=== PATIENT | female | born 1990 | race African-American/Black ===

== ENCOUNTER 2021-04-22 17:00 | Emergency (ER) | payer BC, SELFPAY ==
--- NOTE | ~2021-04-22 | CT_ITS ---
EXAMINATION: CT ABDOMEN AND PELVIS WITH CONTRAST CLINICAL INFORMATION: Left lower quadrant and flank pain. COMPARISON: None TECHNIQUE: Multidetector volumetric images were obtained from the superior aspect of the liver through the pubic symphysis following administration 85 mL of Omnipaque 350 intravenous contrast. Sagittal and coronal reformatted images were obtained on the technologist's workstation. Oral contrast: No This CT examination was performed using dose optimization techniques as appropriate, variously including the following: *Automated exposure control *Adjustment of mA and/or kV according to patient size (this includes techniques or standardized protocols for targeted exams where dose is matched to indication/reason for exam; i.e. extremities or head) *Use of iterative reconstruction technique DLP: 974 mGy-cm FINDINGS: LUNG BASES: The visualized lung bases are unremarkable. LIVER, GALLBLADDER, AND BILIARY TREE: The liver is normal in size, shape, and attenuation. There is a benign cyst within the right lobe of liver measuring 1.2 cm. No suspicious hepatic lesion or biliary ductal dilatation is present. Gallbladder unremarkable. PANCREAS: Unremarkable. SPLEEN: Unremarkable. ADRENAL GLANDS: Unremarkable. KIDNEYS AND URETERS: There is a 4 mm stone within the distal left ureter located at the ureterovesical junction associated mild upstream hydroureter and hydronephrosis as well as delayed/diminished enhancement of the left kidney with respect to the right. There is a 3 mm nonobstructive calculus in the interpolar region of the right kidney. BLADDER: Unremarkable. GASTROINTESTINAL TRACT: The small and large bowel are unremarkable. The appendix is unremarkable. ABDOMINAL WALL: No significant hernia is appreciated. LYMPH NODES: Normal. VASCULAR: Unremarkable. PELVIC VISCERA: There is a large pedunculated subserosal fibroid emanating from the anterior uterus measuring 8.2 cm. OSSEOUS STRUCTURES: Unremarkable. CT/CT abdomen pelvis w con IMPRESSION: There is a 4 mm stone within the distal left ureter associated with mild upstream hydroureteronephrosis. Large subserosal fibroid emanating from the anterior uterus measuring 8.2 cm.
[2021-04-22 17:06] VITALS: BP 139/85; PULSE 90; RESP 20; TEMP 36.6; O2SAT 98; BMI 42.0
[2021-04-22 20:00] VITALS: BP 128/83; PULSE 89; RESP 20; TEMP 37.2; O2SAT 100
[2021-04-22] MEDS: ondansetron HCL 4 MG/2 ML VIAL IVPUSH (20:11)
[2021-04-22] MEDS: Famotidine/PF 20 MG/2 ML VIAL IVPUSH (20:11)
[2021-04-22] MEDS: Ketorolac Tromethamine 15 MG/ML VIAL IVPUSH (20:11)
[2021-04-22] MEDS: 0.9 % Sodium Chloride 1,000 ML 999 ML IVCONT (20:11)
[2021-04-22 20:20] LABS: MANUAL DIFF FLAG NO
[2021-04-22 20:22] LABS: Basophils Percent Auto 0.3 % (0-2); Hematocrit 33.1 % (37-47); Hemoglobin 10.4 g/dl (12.0-16.0); Imm Gran Abs Auto 0.08 X10*3/uL (0.00-0.03); Imm Gran Pct Auto 0.5 % (0.0-0.4); Lymphocytes Absolute Auto 1.2 X10*3/uL (1.2-4.9); Lymphocytes Percent Auto 8.1 % (20-40); Mean Corpuscular HGB Conc 31.4 g/dl (31.0-35.0); Mean Corpuscular Hemoglobin 24.4 pg (27.0-33.0); Mean Corpuscular Volume 77.7 fL (80-98); Mean Platelet Volume 9.9 fL (9.4-12.3); Monocytes Absolute Auto 0.6 X10*3/uL (0.1-1.2); Monocytes Percent Auto 3.8 % (2-11); Neutrophils Absolute Auto 13.1 X10*3/uL (2.0-8.3); Neutrophils Percent Auto 87.3 % (45-73); Platelet Count 397 X10*3/uL (160-400); Red Blood Count 4.26 X10*6/uL (4.20-5.50); Red Cell Distribution Width 17.1 % (11.0-16.0)
[2021-04-22 20:52] LABS: Glucose Urine UA NEG (NEG); Leukocyte Esterase Urine NEG (NEG); Nitrite Urine NEG (NEG); PH 6.5 (5.0-8.0); Specific Gravity - Urine 1.025 (1.005-1.025); UACC Culture Trigger NO; Urine Blood 3+ (NEG); Urine Ketones NEG (NEG); Urine Protein TRACE MG/DL (NEG-TRACE)
[2021-04-22 20:54] LABS: Appearance Urine HAZY; Color Urine YELLOW
[2021-04-22 20:55] LABS: UPreg QC Valid YES; Urine Pregnancy NEGATIVE (NEGATIVE)
[2021-04-22 20:57] LABS: Alanine Aminotransferase 16 U/L (0-31); Albumin Level 4.3 g/dL (3.5-5.0); Alkaline Phosphatase 117 U/L (39-117); Anion Gap 15 (12-20); Aspartate Amino Transferase 15 U/L (5-31); Bilirubin Direct 0.3 mg/dL (0.0-0.5); Bilirubin Total 0.8 mg/dL (0.0-1.0); Blood Urea Nitrogen 11 mg/dL (9-16); Calcium 9.4 mg/dL (8.4-10.2); Carbon Dioxide 22 mmol/L (22-29); Chloride 106 mmol/L (96-108); Estimated Glomerular Filt Rate > 60; Glucose Random 116 mg/dL (60-115); Lipase 18 U/L (8-78); Magnesium 2.5 mg/dL (1.6-2.6); Potassium 3.7 mmol/L (3.3-5.1); Sodium 139 mmol/L (135-145); Total Protein 7.3 g/dL (6.5-8.0)
[2021-04-22 21:04] LABS: Bacteria Urine 1+ /LPF; RBC Urine 30-49 /HPF (0); Squamous Epithelial Cell Urine TRACE /LPF; WBC Urine 0-2 /HPF (0-4)
[2021-04-22] MEDS: iohexoL 350 MG/ML 100 ML INFUS..BTL IV (21:22)
[2021-04-22 21:43] VITALS: BP 121/64; PULSE 91; RESP 18; TEMP 37; O2SAT 97
[2021-04-22 22:13] LABS: Lactic Acid 1.5 mmol/L (0.5-2.0)
--- NOTE | 2021-04-22 22:31 | ED.ABDPAIN ---
HPI - Abdominal Pain General Chief Complaint: Abdominal Pain Stated Complaint: abd pain Time Seen by Provider: 04/22/21 19:50 Source: patient Mode of arrival: ambulatory History of Present Illness HPI narrative: 30-year-old female with no significant past medical history presenting to the ED complaining of LLQ abdominal pain radiating to left flank x 14 hours with associated nausea, vomiting, and dysuria. Reports inability to tolerate p.o. Denies fever, chills, diarrhea, hematuria, urinary frequency, vaginal bleeding MD elicited complaint: abdominal pain and flank pain Related Data Previous Rx's Medication Instructions Recorded ketorolac 10 mg tablet 10 mg PO Q6H PRN 5 Days #10 tab 04/22/21 tamsulosin 0.4 mg capsule (Flomax) 0.4 mg PO DAILY #14 cap 04/22/21 Allergies Allergy/AdvReac Type Severity Reaction Status Date / Time No Known Allergies Allergy Verified 04/22/21 17:09 Review of Systems Review of Systems Constitutional: No Fever, No Chills, No Fatigue, No Malaise Cardiovascular: No Chest Pain, No SOB, No Palpitations Respiratory: No Cough, No Dyspnea Gastrointestinal: + Nausea, + Vomiting, No Diarrhea, No Constipation, + Abdominal pain Genitourinary: No irregular bleeding, + Dysuria, No Urinary Frequency, No Hematuria,+ Flank Pain, No Urinary Flow Changes Musculoskeletal: No joint pain, No Myalgias, No Joint Swelling Skin: No Skin Lesions, No rash Neuro: No Weakness, No Numbness, No Paresthesias Yes all other systems are reviewed and are negative Physical Exam Vital Signs: Vital Signs: Last Vital Signs Temp 98.6 F 04/22/21 21:43 Pulse 91 04/22/21 21:43 Resp 18 04/22/21 21:43 BP 121/64 04/22/21 21:43 Pulse Ox 97 04/22/21 21:43 Body Mass Index 42.0 Const: General: cooperative, healthy appearing and no acute distress Orientation/consciousness: patient oriented x3 Limitations: no limitations HENMT: Head: Yes normal to inspection Ears: hearing grossly normal bilaterally General nose exam: Normal external nose present Face and sinus: Yes normal facial exam Eyes: General: appearance normal, both eyes and all related structures EOM: EOMs intact bilaterally Neck: Neck: Yes normal visual inspection Resp: Effort & Inspection: normal respiratory effort and no respiratory distress Cardio: Rate: regular rate GI: Inspection: Yes normal to inspection Palpation (GI): Soft to palpation, Tenderness to palpation present (GI) (Lower abdomen) in the LLQ, no guarding and not rigid : General: Yes CVA tenderness on the left Back/Spine/Pelvis: Back: CVA tenderness Skin: Rashes: no rashes Wounds: no wounds Neuro: General: patient oriented x3 Gait exam (Neuro): Normal gait present Extrem: General: Yes normal to inspection Course Course Course Narrative: -leukocytosis of 15.0 > low concern for severe sepsis. Lactic acid added -renal function WNL, lactic acid negative -UA with RBCs/not infected 2230- CT abdomen pelvis w con IMPRESSION: There is a 4 mm stone within the distal left ureter associated with mild upstream hydroureteronephrosis. Large subserosal fibroid emanating from the anterior uterus measuring 8.2 cm.? >> results discussed with patient. Reports symptomatic improvement. Clinically looks improved, asymptomatic at this time. Discussed worrisome signs and symptoms and strict return precautions, she should follow-up with urology and OBGYN, she verbalized understanding feel safe for discharge home MDM - Abdominal Pain MDM Narrative Medical decision making narrative: 30-year-old female with no significant past medical history presenting to the ED complaining of LLQ abdominal pain radiating to left flank x 14 hours with associated nausea, vomiting, and dysuria. On exam VSS, NAD, abdomen soft with LLQ/lower abdomen and left flank TTP, no rebound or guarding. Concern for renal stone/pyelo vs diverticulitis. Rule out UTI. Lower concern for appendicitis/pancreatitis or cholecystitis Plan: Labs, UA, CT AP, IVF, symptomatic treatment, reassess Medical Records Attestation: I reviewed the patient's medical records. Lab Data Attestation: I reviewed the patient's lab results. Result diagrams: 04/22/21 20:09 04/22/21 20:09 Labs: Lab Results 04/22/21 04/22/21 04/22/21 Range/Units 20:09 20:09 20:44 WBC 15.0 H (4.8-10.8) X10*3/uL RBC 4.26 (4.20-5.50) X10*6/uL Hgb 10.4 L (12.0-16.0) g/dl Hct 33.1 L (37-47) % MCV 77.7 L (80-98) fL MCH 24.4 L (27.0-33.0) pg MCHC 31.4 (31.0-35.0) g/dl RDW 17.1 H (11.0-16.0) % Plt Count 397 (160-400) X10*3/uL MPV 9.9 (9.4-12.3) fL Immature Gran % (Auto) 0.5 H (0.0-0.4) % Neut % (Auto) 87.3 H (45-73) % Lymph % (Auto) 8.1 L (20-40) % [place] % (Auto) 3.8 (2-11) % Eos % (Auto) 0.0 (0-4) % Baso % (Auto) 0.3 (0-2) % Lymph # (Auto) 1.2 (1.2-4.9) X10*3/uL [place] # (Auto) 0.6 (0.1-1.2) X10*3/uL Eos # (Auto) 0.0 (0.0-0.4) X10*3/uL Baso # (Auto) 0.0 (0.0-0.2) X10*3/uL Abs Immat Gran (auto) 0.08 H (0.00-0.03) X10*3/uL Absolute Neuts (auto) 13.1 H (2.0-8.3) X10*3/uL Absolute Nucleated RBC 0.000 (0.0-0.012) X10*3/uL Nucleated RBC % (auto) 0.0 (0.0-0.2) /100WBC Sodium 139 (135-145) mmol/L Potassium 3.7 (3.3-5.1) mmol/L Chloride 106 (96-108) mmol/L Carbon Dioxide 22 (22-29) mmol/L Anion Gap 15 (12-20) BUN 11 (9-16) mg/dL Creatinine 0.79 (0.5-1.4) mg/dL Estim Creat Clear Calc 119.0 Estimated GFR > 60 Random Glucose 116 H (60-115) mg/dL Lactic Acid (0.5-2.0) mmol/L Calcium 9.4 (8.4-10.2) mg/dL Magnesium 2.5 (1.6-2.6) mg/dL Total Bilirubin 0.8 (0.0-1.0) mg/dL Direct Bilirubin 0.3 (0.0-0.5) mg/dL AST 15 (5-31) U/L ALT 16 (0-31) U/L Alkaline Phosphatase 117 (39-117) U/L Total Protein 7.3 (6.5-8.0) g/dL Albumin 4.3 (3.5-5.0) g/dL Lipase 18 (8-78) U/L Urine Color YELLOW Urine Appearance HAZY Urine pH 6.5 (5.0-8.0) Ur Specific [place] 1.025 (1.005-1.025) Urine Protein TRACE (NEG-TRACE) MG/DL Urine Glucose (UA) NEG (NEG) MG/DL Urine Ketones NEG (NEG) MG/DL Urine Blood 3+ H (NEG) Urine Nitrite NEG (NEG) Ur Leukocyte Esterase NEG (NEG) Urine RBC 30-49 H (0) /HPF Urine WBC 0-2 (0-4) /HPF Ur Squamous Epith Cells TRACE /LPF Urine Bacteria 1+ /LPF Urine Test (NEGATIVE) 04/22/21 04/22/21 Range/Units 20:44 21:40 WBC (4.8-10.8) X10*3/uL RBC (4.20-5.50) X10*6/uL Hgb (12.0-16.0) g/dl Hct (37-47) % MCV (80-98) fL MCH (27.0-33.0) pg MCHC (31.0-35.0) g/dl RDW (11.0-16.0) % Plt Count (160-400) X10*3/uL MPV (9.4-12.3) fL Immature Gran % (Auto) (0.0-0.4) % Neut % (Auto) (45-73) % Lymph % (Auto) (20-40) % [place] % (Auto) (2-11) % Eos % (Auto) (0-4) % Baso % (Auto) (0-2) % Lymph # (Auto) (1.2-4.9) X10*3/uL [place] # (Auto) (0.1-1.2) X10*3/uL Eos # (Auto) (0.0-0.4) X10*3/uL Baso # (Auto) (0.0-0.2) X10*3/uL Abs Immat Gran (auto) (0.00-0.03) X10*3/uL Absolute Neuts (auto) (2.0-8.3) X10*3/uL Absolute Nucleated RBC (0.0-0.012) X10*3/uL Nucleated RBC % (auto) (0.0-0.2) /100WBC Sodium (135-145) mmol/L Potassium (3.3-5.1) mmol/L Chloride (96-108) mmol/L Carbon Dioxide (22-29) mmol/L Anion Gap (12-20) BUN (9-16) mg/dL Creatinine (0.5-1.4) mg/dL Estim Creat Clear Calc Estimated GFR Random Glucose (60-115) mg/dL Lactic Acid 1.5 (0.5-2.0) mmol/L Calcium (8.4-10.2) mg/dL Magnesium (1.6-2.6) mg/dL Total Bilirubin (0.0-1.0) mg/dL Direct Bilirubin (0.0-0.5) mg/dL AST (5-31) U/L ALT (0-31) U/L Alkaline Phosphatase (39-117) U/L Total Protein (6.5-8.0) g/dL Albumin (3.5-5.0) g/dL Lipase (8-78) U/L Urine Color Urine Appearance Urine pH (5.0-8.0) Ur Specific [place] (1.005-1.025) Urine Protein (NEG-TRACE) MG/DL Urine Glucose (UA) (NEG) MG/DL Urine Ketones (NEG) MG/DL Urine Blood (NEG) Urine Nitrite (NEG) Ur Leukocyte Esterase (NEG) Urine RBC (0) /HPF Urine WBC (0-4) /HPF Ur Squamous Epith Cells /LPF Urine Bacteria /LPF Urine Test NEGATIVE (NEGATIVE) Discharge Plan Discharge Clinical Impression: Left ureteral stone, Fibroid, uterine Patient Disposition: Home, Self-Care Instructions: Ureteral Stones (ED) Additional Instructions: You have a 4 mm stone in her distal left ureter, you also have uterine fibroid Ketorolac is a an anti-inflammatory pain medication, take as needed In addition take Tylenol Flomax will help dilate ureter to help pass the stone You to follow-up with urology You should also follow-up with her OBGYN If your pain becomes unbearable, have constant/persistent nausea/vomiting please return to the ED Prescriptions: New ketorolac 10 mg tablet 10 mg PO Q6H PRN (Reason: pain) 5 Days Qty: 10 RF: 0 tamsulosin [Flomax] 0.4 mg capsule 0.4 mg PO DAILY Qty: 14 RF: 0 Referrals: Ezra Loya MD [Physician] - 5 days PMF Past Medical History Attestation statement: The following information was validated with the patient. Medical History (Updated 04/22/21 @ 22:41 by AICHA Medrano) No known health problems Social History Social History Advance Directives: No Advance Directives Information Provided: No
[2021-04-22 22:32] VITALS: BP 110/81; PULSE 95; RESP 15; O2SAT 97
[2021-04-22] MEDS: Tamsulosin HCL 0.4 MG CAPSULE PO (22:33)
== END 2021-04-22 22:54 | disposition home or self-care (01) ==
PROVIDERS: Physician Assistant; Emergency Provider Emergency Medicine
DX: N20.1 Calculus of ureter (principal); R10.9 Unspecified abdominal pain; Z79.899 Other long term (current) drug therapy
CPT/HCPCS: 36415; 74177; 80048; 80076; 81001; 81025; 83605; 83690; 83735; 85025; 96361; 96374; 96375; 99284; J1885; J2405; Q9967